=== PATIENT | male | born 1935 | race Caucasian/White ===

== ENCOUNTER → 2016-12-30 | Outpatient (CLI) | payer MEDICARE, BC ==
[~2016-12-30] MED LIST: ALLOPURINOL300 MG PO; AZILECT1 MG PO; CLARITIN10 MG PO; COLACE100 MG PO; COZAAR50 MG PO; CRESTOR20 MG PO; ECOTRIN325 MG PO; EXELON1 EACH TOP; MIRALAX17 GM PO; OCUVITE LUTEIN1 EACH PO; ONE DAILY FOR1 EAC1 PO; PRILOSEC20 MG PO; SINEMET 25/2501 TAB PO; TYLENOL EXTRA500 MG PO; VITAMIN B1 PO; VITAMIN D-32000 UNI1 PO
== END | disposition disaster alternative care site (69) ==
LOC: GAMB 18:06
DX: R41.82 Altered mental status, unspecified (principal); M79.604 Pain in right leg; G20 Parkinson's disease; E78.5 Hyperlipidemia, unspecified; I95.9 Hypotension, unspecified; I10 Essential (primary) hypertension; R29.810 Facial weakness; Z79.82 Long term (current) use of aspirin; Z79.899 Other long term (current) drug therapy
CPT/HCPCS: A0422; A0425; A0429

== ENCOUNTER → 2017-01-07 | Outpatient (CLI) | payer MEDICARE, BC | END | disposition disaster alternative care site (69) | LOC: GRAD 13:30 | DX: M54.9 Dorsalgia, unspecified (principal); M47.816 Spondylosis without myelopathy or radiculopathy, lumbar region ==

== ENCOUNTER → 2017-02-25 | Outpatient (CLI) | payer MEDICARE, BC | END | disposition disaster alternative care site (69) | LOC: GAMB 20:20 | DX: R41.82 Altered mental status, unspecified (principal); F41.9 Anxiety disorder, unspecified; I10 Essential (primary) hypertension; E78.5 Hyperlipidemia, unspecified; Z79.82 Long term (current) use of aspirin; Z79.899 Other long term (current) drug therapy | CPT/HCPCS: A0425; A0429 ==